=== PATIENT | male | born 2000 | race Caucasian/White ===

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

== ENCOUNTER 2019-05-24 01:43 | Emergency (ER) | payer OTHER ==
[2019-05-24] MEDS ORDERED: Ondansetron PF 4 MG/2 ML Vial ONE (02:02)
[2019-05-24 02:12] LABS: Hemoglobin 16.8 g/dL (14.0-18.0); Mean Corpuscular HGB CONC 35.4 g/dL (32.0-36.0); Mean Corpuscular Volume 93.2 fL (78.0-98.0); Mean Platelet Volume 7.1 fL (7.4-10.4); Platelet Count 222 thou/uL (130-400); RBC Distribution Width 10.9 % (11.5-14.5); Red Blood Cell (RBC) Count 5.08 mill/uL (4.00-5.20); White Blood Cell (WBC) Count 12.7 thou/uL (4.8-10.8)
[2019-05-24 02:17] LABS: Base Excess-Venous 0.6 mmol/L (-2.0 to 3.0); Bicarbonate (HCO3v) 27.9 mmol/L (22.0-28.0); CO2 Tension (PvCO2) 54.2 mmHg (40.0-50.0); Calcium, Ionized 1.15 mmol/L (See Comments:); Chloride 106 mmol/L (98-107); Hemoglobin - Calc 15.3 g/dL (14.0-18.0); Sodium 140 mmol/L (138-145); T. Carbon Dioxide 29.6 mmol/L (22.0-28.0); vO2 Saturation-calc 63.1 % (60.0-85.0)
[2019-05-24 02:26] LABS: MDiff Complete? YES
[2019-05-24 02:27] LABS: Band 12 % (5-11); Lymphocytes 12 % (28-48); Monocytes 1 % (0-4); Neutrophil 75 % (31-61)
[2019-05-24 02:33] LABS: ALT (SGPT) 16 U/L (8-55); AST (SGOT) 23 U/L (5-34); Albumin 4.9 g/dL (3.5-5.0); Alkaline Phosphatase 115 U/L (50-130); Anion Gap 14 mmol/L (10-20); BUN (Urea Nitrogen) 17 mg/dL (8.9-20.6); Bilirubin, Total 0.9 mg/dL (0.2-1.2); Calc. Creatinine Clearance 0 mL/min (70-130); Calcium 9.8 mg/dL (7.8-10.44); Carbon Dioxide 27 mmol/L (22-29); Chloride 104 mmol/L (98-107); Estimated GFR-MDRD Greater than 90; Glucose 201 mg/dL (70-105); Lipase 8 U/L (8-78); Potassium 3.9 mmol/L (3.5-5.1); Protein, Total 7.9 g/dL (6.0-8.3); Sodium 141 mmol/L (136-145)
--- NOTE | 2019-05-24 08:08 | CT ---
PRELIMINARY REPORT/[facility]/EMERGENCY AFTER HOURS PROCEDURE: PROCEDURE INFORMATION: Exam: CT Abdomen And Pelvis With Contrast Exam date and time: 05/24/2019 2:22 AM Clinical history: 19 years old, male; Patient HX: M19 with pmhx of diabetes presents to ED with C/O l lq abdominal pain with n/v and constipation. PT reports last bm was x1 week ago with worsening abdomi nal pain and vomiting onset today. PT reports that he has not tried anything for the constipation. PT states that he does daily insulin injections and his sugars have been abnormal withi n the last 3 days. PT reports that his sugar was 47 on Tuesday and was 190-220 the past 2 days. PT den ies HX of dka or hospitalization from diabetes. PT denies fever, cough, congestion, rhinorrhea and te sticular pain. PT has had no abdominal surgeries. TECHNIQUE: Imaging protocol: Computed tomography of the abdomen and pelvis with intravenous contrast. COMPARISON: No relevant prior studies available. FINDINGS: Liver: Normal. No mass. Gallbladder and bile ducts: Normal. No calcified stones. No ductal dilation. Pancreas: Normal. No ductal dilation. Spleen: Normal. No splenomegaly. Adrenals: Normal. No mass. Kidneys and ureters: Normal. No hydronephrosis. Stomach and bowel: No evidence of small bowel obstruction. Mild - moderate amount retained stool mate rial throughout nondilated colon. Appendix: Appendix - visualized portions appear normal. Intraperitoneal space: Unremarkable. No free air. No significant fluid collection. Vasculature: Unremarkable. No abdominal aortic aneurysm. Lymph nodes: Unremarkable. No enlarged lymph nodes. Bladder: Unremarkable as visualized. Reproductive: Prostate appears within normal limits. Bones/joints: Unremarkable. No acute fracture. Soft tissues: Unremarkable. IMPRESSION: 1. No evidence of small bowel obstruction. 2. Mild - moderate amount retained stool material throughout nondilated colon. Thank you for allowing us to participate in the care of your patient. Dictated and Authenticated by: Pancho Ruiz MD 05/24/2019 2:49 AM Central Time ([place] & [place]) FINAL REPORT CT ABDOMEN AND PELVIS WITH IV CONTRAST: IMPRESSION: I agree with the preliminary report given by [facility]. POS: [facility]
== END 2019-05-24 04:07 | disposition home or self-care (01) ==
LOC: ERS 01:43
DX: K59.00 Constipation, unspecified (principal); E10.9 Type 1 diabetes mellitus without complications
CPT/HCPCS: 36416; 74177; 80053; 82010; 82330; 82803; 83690; 85025; J2405